=== PATIENT | male | born 1965 ===

== ENCOUNTER 2017-11-27 18:06 | Observation (INO) | payer BC ==
[2017-11-27 18:11] VITALS: BMI 25.0
[2017-11-27 18:25] LABS: BASO # 0.1 K/uL (0.0-0.2); BASO % 0.6 % (0.0-2.0); EOS % 0.3 % (0.0-4.0); LYMPH % 7.6 % (20.0-40.0); MEAN CELL VOLUME 85.1 fL (80.0-94.0); MEAN CORPUSCULAR HEMOGLOBIN 28.8 pg (27.0-31.0); MEAN CORPUSCULAR HGB CONC 33.8 g/dL (33.0-37.0); MEAN PLATELET VOLUME 8.6 fL (7.2-11.7); MONO # 1.2 K/uL (0.0-0.8); MONO % 9.6 % (0.0-10.0); NEUT # 10.5 K/uL (1.8-7.0); NEUT % 81.9 % (50.0-75.0); NRBC % 0.1 % (0.0-2.0); PLATELET COUNT 317 K/uL (130-400); RBC 4.86 Mil/uL (4.40-5.90); RED CELL DISTRIBUTION WIDTH 13.6 % (11.5-14.5); WHITE BLOOD COUNT 12.8 K/uL (4.8-10.8)
--- NOTE | 2017-11-27 18:31 | C.PDOC ---
History Of Present Illness [id number] male with Hx of HTN and hyperlipidemia presents to ED for complaints of mid sternal chest pain that radiates to sternal notch that began during the night last night. Patient reports he felt SOB and it hurt to take a deep breath. Patient states he took Motrin for relief and went back to sleep but pain was still present this morning and then worsened during the day. He called 911 this evening. Patient was administered 3 additional Aspirins on route with no relief. Patient also states he has "Hx of reflux but it does not feel like this." Time Seen by Provider: 11/27/17 18:12 Chief Complaint (Nursing): Chest Pain History Per: Patient History/Exam Limitations: no limitations Onset/Duration Of Symptoms: Hrs Current Symptoms Are (Timing): Still Present Modifying Factors: None Exacerbating Factors: None Alleviating Factors: None Nitro Therapy Administered: 3 Recent travel outside of the [place]: No Past Medical History Reviewed: Historical Data, Nursing Documentation, Vital Signs Vital Signs: Last Vital Signs Temp 98.7 F 11/27/17 18:10 Pulse 80 11/27/17 19:37 Resp 24 11/27/17 19:37 BP 121/69 11/27/17 19:37 Pulse Ox 98 11/27/17 19:37 - Medical History PMH: HTN, Hypercholesterolemia Surgical History: No Surg Hx Family History: States: CAD - Social History Hx Tobacco Use: No Hx Alcohol Use: No Hx Substance Use: No - Immunization History Hx Tetanus Toxoid Vaccination: No Hx Influenza Vaccination: Yes Hx Pneumococcal Vaccination: No Review Of Systems Constitutional: Negative for: Fever, Chills Cardiovascular: Positive for: Chest Pain (mid sternal ) Respiratory: Positive for: Shortness of Breath. Negative for: Cough Gastrointestinal: Negative for: Nausea, Vomiting, Diarrhea Skin: Negative for: Rash Neurological: Negative for: Weakness, Numbness Physical Exam - Physical Exam Appears: Well, Non-toxic, No Acute Distress Skin: Normal Color, Warm, Dry Head: Atraumatic, Normacephalic Eye(s): bilateral: Normal Inspection, PERRL, EOMI Oral Mucosa: Moist Neck: Supple Chest: Symmetrical, No Tenderness Cardiovascular: Rhythm Regular, No Murmur Respiratory: Normal Breath Sounds, No Decreased Breath Sounds, No Rales, No Rhonchi, No Wheezing Gastrointestinal/Abdominal: Soft, No Tenderness, No Distention Extremity: Normal ROM, No Tenderness, No Pedal Edema, No Deformity Extremity: Bilateral: Normal Color And Temperature, Normal ROM Neurological/Psych: Oriented x3, Normal Speech, Normal Cognition, Other (No focal deficits ) Gait: Steady ED Course And Treatment - Laboratory Results Result Diagrams: 11/27/17 18:22 11/27/17 18:22 Lab Interpretation: No Acute Changes ECG: Interpreted By Me ECG Rhythm: Sinus Rhythm (with diffuse ST elevations) O2 Sat by Pulse Oximetry: 97 (RA) Pulse Ox Interpretation: Normal - Radiology CXR: Interpreted by Me CXR Interpretation: Yes: No Acute Disease Reevaluation Time: 19:56 Reassessment Condition: Improved (Patient comfortable and pain free.) - Physician Consult Information Time Consulting Physician Contacted: 19:56 Physician Contacted: Garth Walker Outcome Of Conversation: Patient to remain on Tele for observation. Medical Decision Making Medical Decision Making: Ordered EKG, blood work, D-Dimer and CXR. Differential diagnosis includes CAD, pericarditis, GERD, PE Disposition - Disposition Disposition: HOSPITALIZED Disposition Time: 20:03 Condition: STABLE - POA Present On Arrival: None - Clinical Impression Clinical Impression: Chest pain - Scribe Statement The provider has reviewed the documentation as recorded by the Scribe Gary Macedo All medical record entries made by the Scribe were at my direction and personally dictated by me. I have reviewed the chart and agree that the record accurately reflects my personal performance of the history, physical exam, medical decision making, and the department course for this patient. I have also personally directed, reviewed, and agree with the discharge instructions and disposition.
[2017-11-27 18:38] LABS: ALB/GLOB RATIO 1.1 (1.0-2.1); ALBUMIN 4.1 g/dL (3.5-5.0); ALT/SGPT 25 U/L (21-72); AST/SGOT 20 U/L (17-59); BLOOD UREA NITROGEN 11 mg/dL (9-20); CALCIUM 9.2 mg/dl (8.6-10.4); GFR AFRICAN-AMERICAN > 60; GFR NON-AFRICAN AMERICAN > 60
[2017-11-27 19:11] LABS: BANDS 2 % (0-2); BASOPHIL 1 % (0-2); EOSINOPHIL 1 % (0-4); LYMPHOCYTE 12 % (20-40); MONOCYTE 10 % (0-10); NEUTROPHIL 72 % (50-75); PLATELET ESTIMATE NORMAL (NORMAL); REACTIVE LYMPHOCYTES 2 % (0-0); TOTAL CELLS COUNTED 100
[2017-11-27] MEDS ORDERED: Enoxaparin 40 mg Syringe SC STA (19:59)
[2017-11-27] MEDS ORDERED: Enoxaparin 40 mg Syringe ONE (20:13)
[2017-11-27 22:59] VITALS: RESP 20
--- NOTE | 2017-11-27 23:42 | CP.PCM.HP ---
History of Present Illness - History of Present Illness History of Present Illness: CC: chest pain History Of Present Illness [id number] male with Hx of HTN and hyperlipidemia presents to ED for complaints of mid sternal chest pain that radiates to sternal notch that began during the night last night. Patient reports he felt SOB and it hurt to take a deep breath. Patient states he took Motrin for relief and went back to sleep but pain was still present this morning and then worsened during the day. He called 911 this evening. Patient was administered 3 additional Aspirins on route with no relief. Patient also states he has "Hx of reflux but it does not feel like this." Past Patient History - Past Social History Smoking Status: Never Smoked - CARDIAC Hx Hypercholesterolemia: Yes Hx Hypertension: Yes - PSYCHIATRIC Hx Substance Use: No - SURGICAL HISTORY Hx Surgeries: No Meds Allergies/Adverse Reactions: Allergies Allergy/AdvReac Type Severity Reaction Status Date / Time No Known Allergies Allergy Verified 11/27/17 18:12 Results - Vital Signs Recent Vital Signs: Last Vital Signs Temp 99.2 F 11/27/17 22:58 Pulse 77 11/27/17 22:58 Resp 20 11/27/17 22:58 BP 132/74 11/27/17 22:58 Pulse Ox 99 11/27/17 22:58 - Labs Result Diagrams: 11/27/17 18:22 11/27/17 18:22 Labs: Laboratory Results - last 24 hr 11/27/17 11/27/17 11/27/17 18:22 18:22 18:22 WBC 12.8 H RBC 4.86 Hgb 14.0 Hct 41.4 MCV 85.1 MCH 28.8 MCHC 33.8 RDW 13.6 Plt Count 317 MPV 8.6 Neut % (Auto) 81.9 H Lymph % (Auto) 7.6 L [place] % (Auto) 9.6 Eos % (Auto) 0.3 Baso % (Auto) 0.6 Neut # (Auto) 10.5 H Lymph # (Auto) 1.0 [place] # (Auto) 1.2 H Eos # (Auto) 0.0 Baso # (Auto) 0.1 Neutrophils % (Manual) 72 Band Neutrophils % 2 Lymphocytes % (Manual) 12 L Reactive Lymphs % 2 H Monocytes % (Manual) 10 Eosinophils % (Manual) 1 Basophils % (Manual) 1 Platelet Estimate Normal D-Dimer, Quantitative < 200 Sodium 147 Potassium 3.6 Chloride 104 Carbon Dioxide 27 Anion Gap 19 BUN 11 Creatinine 0.9 Est GFR ( Amer) > 60 Est GFR (Non-Af Amer) > 60 Random Glucose 106 Calcium 9.2 Total Bilirubin 1.2 AST 20 ALT 25 Alkaline Phosphatase 85 Troponin I < 0.0120 Total Protein 7.7 Albumin 4.1 Globulin 3.6 Albumin/Globulin Ratio 1.1 Assessment & Plan (1) Chest pain Assessment and Plan: 52 year old admitted with chest pain increasing with respiration and unlike his previously heart burn'; unresponsive to aspirin; radiating to his lower neck; associated with shortness of breath; due to persistence call an ambulance No history of palpitations syncope palpitations edema He reportedly had a 'normal' stress test in 2017 Past Medical Systemic hypertension Hyperlipidemia Status: Acute
[2017-11-28 01:28] LABS: CK-MB 0.93 ng/mL (0.0-3.38); TROPONIN I 0.06 ng/mL (0.00-0.120)
--- NOTE | 2017-11-28 09:12 | RAD ---
PROCEDURE: CHEST RADIOGRAPH, 1 VIEW HISTORY: chest pain COMPARISON: None available. FINDINGS: LUNGS: Linear atelectasis noted at the left base with remaining lung graham clear. PLEURA: No pneumothorax or pleural fluid seen. CARDIOVASCULAR: Normal. OSSEOUS STRUCTURES: No significant abnormalities. VISUALIZED UPPER ABDOMEN: Normal. OTHER FINDINGS: None. IMPRESSION: Linear atelectasis left base. No definite acute cardiopulmonary disease appreciable.
[2017-11-28] MEDS: Enoxaparin 40 mg Syringe SC SCH (10:18)
--- NOTE | 2017-11-28 18:01 | CP.PCM.CON ---
History of Present Illness - History of Present Illness History of Present Illness: Re: Chest pain Chart reviewed and imaging and labs noted 52 year old admitted with chest pain increasing with respiration and unlike his previously heart burn'; unresponsive to aspirin; radiating to his lower neck; associated with shortness of breath; due to persistence call an ambulance No history of palpitations syncope palpitations edema He reportedly had a 'normal' stress test in 2017 Past Medical Systemic hypertension Hyperlipidemia Past surgery: None Exam: Vitals noted Afebrile No distress Normal venous pressures Normal Carotids Clear lungs ?PMI Normal heart sounds intensity No rub Abdomen: soft no bruits Extremities: no edema DP +=+ EKG: sinus; Diffuse ST elevation VA depression CXR: reviewed: unremarkable Labs: reviewed: unrevealing except a White count of 12.8K Past Patient History - Past Social History Smoking Status: Never Smoked - CARDIAC Hx Hypercholesterolemia: Yes Hx Hypertension: Yes - PSYCHIATRIC Hx Substance Use: No - SURGICAL HISTORY Hx Surgeries: No Meds Allergies/Adverse Reactions: Allergies Allergy/AdvReac Type Severity Reaction Status Date / Time No Known Allergies Allergy Verified 11/27/17 18:12 - Medications Medications: Current Medications Aspirin (Aspirin Chewable) 81 mg PO DAILY [facility] Last Admin: 11/28/17 10:16 Dose: 81 mg Enoxaparin Sodium (Lovenox) 40 mg SC DAILY [facility] Last Admin: 11/28/17 10:18 Dose: 40 mg Metoprolol Tartrate (Lopressor) 25 mg PO BID [facility] Last Admin: 11/28/17 10:16 Dose: 25 mg Rosuvastatin Calcium (Crestor) 20 mg PO [facility] Last Admin: 11/27/17 22:03 Dose: 20 mg Results - Vital Signs Recent Vital Signs: Last Vital Signs Temp 99.4 F 11/28/17 08:25 Pulse 88 11/28/17 08:25 Resp 20 11/28/17 08:25 BP 119/74 11/28/17 10:16 Pulse Ox 96 11/28/17 08:25 - Labs Result Diagrams: 11/27/17 18:22 11/27/17 18:22 Labs: Laboratory Results - last 24 hr 11/27/17 11/27/17 11/27/17 18:22 18:22 18:22 WBC 12.8 H RBC 4.86 Hgb 14.0 Hct 41.4 MCV 85.1 MCH 28.8 MCHC 33.8 RDW 13.6 Plt Count 317 MPV 8.6 Neut % (Auto) 81.9 H Lymph % (Auto) 7.6 L [place] % (Auto) 9.6 Eos % (Auto) 0.3 Baso % (Auto) 0.6 Neut # (Auto) 10.5 H Lymph # (Auto) 1.0 [place] # (Auto) 1.2 H Eos # (Auto) 0.0 Baso # (Auto) 0.1 Neutrophils % (Manual) 72 Band Neutrophils % 2 Lymphocytes % (Manual) 12 L Reactive Lymphs % 2 H Monocytes % (Manual) 10 Eosinophils % (Manual) 1 Basophils % (Manual) 1 Platelet Estimate Normal D-Dimer, Quantitative < 200 Sodium 147 Potassium 3.6 Chloride 104 Carbon Dioxide 27 Anion Gap 19 BUN 11 Creatinine 0.9 Est GFR ( Amer) > 60 Est GFR (Non-Af Amer) > 60 Random Glucose 106 Calcium 9.2 Total Bilirubin 1.2 AST 20 ALT 25 Alkaline Phosphatase 85 Total Creatine Kinase CK-MB (Mass) Troponin I < 0.0120 Total Protein 7.7 Albumin 4.1 Globulin 3.6 Albumin/Globulin Ratio 1.1 11/28/17 01:00 WBC RBC Hgb Hct MCV MCH MCHC RDW Plt Count MPV Neut % (Auto) Lymph % (Auto) [place] % (Auto) Eos % (Auto) Baso % (Auto) Neut # (Auto) Lymph # (Auto) [place] # (Auto) Eos # (Auto) Baso # (Auto) Neutrophils % (Manual) Band Neutrophils % Lymphocytes % (Manual) Reactive Lymphs % Monocytes % (Manual) Eosinophils % (Manual) Basophils % (Manual) Platelet Estimate D-Dimer, Quantitative Sodium Potassium Chloride Carbon Dioxide Anion Gap BUN Creatinine Est GFR ( Amer) Est GFR (Non-Af Amer) Random Glucose Calcium Total Bilirubin AST ALT Alkaline Phosphatase Total Creatine Kinase 104 CK-MB (Mass) 0.93 Troponin I 0.0600 Total Protein Albumin Globulin Albumin/Globulin Ratio Assessment & Plan - Assessment and Plan (Free Text) Assessment: Mr. Best presented with chest pain on a background of some vascular risk factors, diffuse ST changes and normal serum troponins Profile suggestive of acute pericarditis likely viral; there is no evidence of tamponade; doubt underlying coronary disease; however vascular risk factors warrant a stress test assuming a normal echocardiogram and serum troponins do not increment Plan: EKG Previous EKG if available to exclude early reporlarization syndrome Echocardiogram Aspirin - Date & Time Date: 11/28/17 Time: 18:38
--- NOTE | 2017-11-28 23:52 | CP.PCM.PN ---
Subjective - Date & Time of Evaluation Date of Evaluation: 11/28/17 Time of Evaluation: 21:00 - Subjective Subjective: Pt seen and evaluated Objective - Vital Signs/Intake and Output Vital Signs (last 24 hours): Temp Pulse Resp BP Pulse Ox 99.4 F 88 20 153/94 H 96 11/28/17 08:25 11/28/17 08:25 11/28/17 08:25 11/28/17 18:25 11/28/17 08:25 - Medications Medications: Current Medications Aspirin (Aspirin Chewable) 81 mg PO DAILY [facility] Last Admin: 11/28/17 10:16 Dose: 81 mg Enoxaparin Sodium (Lovenox) 40 mg SC DAILY [facility] Last Admin: 11/28/17 10:18 Dose: 40 mg Metoprolol Tartrate (Lopressor) 25 mg PO BID [facility] Last Admin: 11/28/17 18:19 Dose: 25 mg Rosuvastatin Calcium (Crestor) 20 mg PO [facility] Last Admin: 11/28/17 21:39 Dose: 20 mg Zolpidem Tartrate (Ambien) 5 mg PO [facility] Last Admin: 11/28/17 22:28 Dose: 5 mg - Labs Labs: 11/27/17 18:22 11/27/17 18:22 Assessment and Plan (1) Chest pain Status: Acute
[2017-11-29 00:50] VITALS: O2SAT 97
[2017-11-29 01:57] VITALS: TEMP 98.1
[2017-11-29 08:25] VITALS: PULSE 79
[2017-11-29] MEDS: Enoxaparin 40 mg Syringe SC SCH (09:31)
[2017-11-29 09:34] VITALS: BP 122/78
--- NOTE | 2017-11-29 10:40 | CP.PCM.PN ---
Subjective - Date & Time of Evaluation Date of Evaluation: 11/29/17 Time of Evaluation: 10:37 - Subjective Subjective: Denies any chest pain or shortness of breath. Objective - Vital Signs/Intake and Output Vital Signs (last 24 hours): Temp Pulse Resp BP Pulse Ox 98.1 F 79 20 122/78 97 11/29/17 08:22 11/29/17 08:22 11/29/17 08:22 11/29/17 09:31 11/29/17 08:22 Intake and Output: 11/29/17 11/29/17 06:59 18:59 Intake Total 480 Balance 480 - Medications Medications: Current Medications Aspirin (Aspirin Chewable) 81 mg PO DAILY [facility] Last Admin: 11/29/17 09:31 Dose: 81 mg Enoxaparin Sodium (Lovenox) 40 mg SC DAILY [facility] Last Admin: 11/29/17 09:31 Dose: 40 mg Metoprolol Tartrate (Lopressor) 25 mg PO BID [facility] Last Admin: 11/29/17 09:31 Dose: 25 mg Rosuvastatin Calcium (Crestor) 20 mg PO [facility] Last Admin: 11/28/17 21:39 Dose: 20 mg Zolpidem Tartrate (Ambien) 5 mg PO [facility] Last Admin: 11/28/17 22:28 Dose: 5 mg - Labs Labs: 11/27/17 18:22 11/27/17 18:22 - Head Exam Head Exam: NORMOCEPHALIC - Neck Exam Neck Exam: Normal Inspection - Respiratory Exam Respiratory Exam: NORMAL BREATHING PATTERN - Cardiovascular Exam Cardiovascular Exam: REGULAR RHYTHM - Extremities Exam Extremities Exam: Normal Inspection - Neurological Exam Neurological Exam: Oriented x3 Assessment and Plan (1) Chest pain Assessment & Plan: Patient with history of hyperlipidemia and hypertension now with chest pain. Cardiac markers negative so far. Reviewed ECHO. normal LV systolic function with mild MR and Trace A R. Discussed with patient he wants to go home. May D/C home and further work-up can be done as out patient. Status: Acute
--- NOTE | 2017-11-29 12:07 | CARD ---
APPROVED REPORT EXAM: Two-dimensional and M-mode echocardiogram with Doppler and color Doppler. Other Information Quality : GoodRhythm : INDICATION Chest Pain 2D DIMENSIONS IVSd1.0 (0.7-1.1cm)LVDd4.1 (3.9-5.9cm) PWd1.2 (0.7-1.1cm)LVDs2.4 (2.5-4.0cm) FS (%) 42.2 %LVEF (%)73.7 (>50%) M-Mode DIMENSIONS RVDd1.77 (2.1-3.2cm)Left Atrium (MM)4.48 (2.5-4.0cm) IVSd1.04 (0.7-1.1cm)Aortic Root3.23 (2.2-3.7cm) LVDd4.93 (4.0-5.6cm)Aortic Cusp Exc.2.12 (1.5-2.0cm) PWd1.18 (0.7-1.1cm)FS (%) 39 % LVDs3.02 (2.0-3.8cm)LVEF (%)69 (>50%) Aortic Valve AI P 1/2 [id number] Mitral Valve MV E Avwckrxl82.1cm/sMV A Pdzyiulm00.7cm/sE/A ratio0.8 TDI E/Lateral E'0.0E/Medial E'0.0 Tricuspid Valve TR Peak [id number]/sTR Peak Gr.[id number] LEFT VENTRICLE The left ventricle is normal size. There is normal left ventricular wall thickness. The left ventricular function is normal. The left ventricular ejection fraction is within the normal range. There is normal LV segmental wall motion. The left ventricular diastolic function is normal. No left ventricle thrombus noted on this study. There is no ventricular septal defect visualized. There is no left ventricular aneurysm. There is no mass noted in the left ventricle. RIGHT VENTRICLE The right ventricle is normal size. There is normal right ventricular wall thickness. The right ventricular systolic function is normal. ATRIA The left atrium is mildly dilated. The right atrium size is normal. The interatrial septum is intact with no evidence for an atrial septal defect. AORTIC VALVE The aortic valve is normal in structure. There is trace aortic regurgitation. There is no aortic valvular stenosis. There is no aortic valvular vegetation. MITRAL VALVE The mitral valve is normal in structure. There is no mitral valve stenosis. There is no mitral valve regurgitation noted. TRICUSPID VALVE The tricuspid valve is normal in structure. There is no tricuspid valve regurgitation noted. PULMONIC VALVE The pulmonary valve is normal in structure. There is mild pulmonic valvular regurgitation. GREAT VESSELS The aortic root is normal in size. The ascending aorta is normal in size. The pulmonary artery is normal. The IVC is normal in size and collapses >50% with inspiration. PERICARDIAL EFFUSION There is no pericardial effusion. <Conclusion> The left atrium is mildly dilated. There is trace aortic regurgitation. There is mild pulmonic valvular regurgitation. LVEF IS 70%.
--- NOTE | 2017-11-29 12:15 | CARD ---
APPROVED REPORT EKG Measurement Heart [id number] [place] [id number] <Conclusion> Normal sinus rhythm Inferior ST elevation, probably acute inferior infarct Normal ECG
--- NOTE | 2017-11-29 12:36 | CARD ---
APPROVED REPORT EKG Measurement Heart [id number] <Conclusion> Normal sinus rhythm Early repolarization Normal ECG
--- NOTE | 2017-11-29 13:39 | CP.PCM.PN ---
Subjective - Date & Time of Evaluation Date of Evaluation: 11/29/17 Time of Evaluation: 13:35 - Subjective Subjective: PT SEEN [facility] CARDIOLOGY THIS MORNING AND CLEARED FOR D/C HOME. OK TO D/C PER DR. COON. PT IS STABLE AND OFFERS NO COMPLAINTS. HE IS EAGER TO BE D/C HOME TODAY. NO NEW RX TODAY, PT STATES HE HAS ENOUGH MEDICATION AT HOME. TO F/U WITH HIS PMD, DR. HARRIS, WITHIN [address] MÉNDEZ OP FOR FURTHER CARDIAC W/ U. PT VERBALIZES UNDERSTANDING OF ALL D/C INFORMATION. NO FURTHER ORDERS. -FOLLOW UP WITH DR. HARRIS IN THE OFFICE WITHIN 1 WEEK---CALL THE OFFICE TOMORROW TO MAKE AN APPOINTMENT. -FOLLOW UP WITH DR. MÉNDEZ (BABYSITTER) IN THE OFFICE WITHIN 2-3 WEEKS---CALL THE OFFICE TOMORROW TO MAKE AN APPOINTMENT. -CONTINUE YOUR METOPROLOL AND SIMVASTATIN AT HOME USUAL. -NO NEW PRESCRIPTIONS. -IF YOU HAVE ANY QUESTIONS ABOUT YOUR HOSPITALIZATION, FEEL FREE TO CONTACT DR. COON OR DR. MÉNDEZ. Objective - Vital Signs/Intake and Output Vital Signs (last 24 hours): Temp Pulse Resp BP Pulse Ox 98.1 F 79 20 122/78 97 11/29/17 08:22 11/29/17 08:22 11/29/17 08:22 11/29/17 09:31 11/29/17 08:22 Intake and Output: 11/29/17 11/29/17 06:59 18:59 Intake Total 480 Balance 480 - Medications Medications: Current Medications Aspirin (Aspirin Chewable) 81 mg PO DAILY [facility] Last Admin: 11/29/17 09:31 Dose: 81 mg Enoxaparin Sodium (Lovenox) 40 mg SC DAILY [facility] Last Admin: 11/29/17 09:31 Dose: 40 mg Metoprolol Tartrate (Lopressor) 25 mg PO BID [facility] Last Admin: 11/29/17 09:31 Dose: 25 mg Rosuvastatin Calcium (Crestor) 20 mg PO HS [facility] Last Admin: 11/28/17 21:39 Dose: 20 mg Zolpidem Tartrate (Ambien) 5 mg PO HS [facility] Last Admin: 11/28/17 22:28 Dose: 5 mg - Labs Labs: 11/27/17 18:22 11/27/17 18:22
--- NOTE | 2017-11-29 23:00 | CP.PCM.DIS ---
Provider - Provider Date of Admission: 11/27/17 20:03 Attending physician: Garth Walker MD Time Spent in preparation of Discharge (in minutes): 45 Diagnosis - Discharge Diagnosis (1) Chest pain Status: Acute Hospital Course - Lab Results Lab Results: Most Recent Lab Values WBC 12.8 K/uL (4.8-10.8) H 11/27/17 18:22 RBC 4.86 Mil/uL (4.40-5.90) 11/27/17 18: Hgb 14.0 g/dL (12.0-18.0) 11/27/17 18: Hct 41.4 % (35.0-51.0) 11/27/17: MCV 85.1 fL (80.0-94.0) 11/27/17: MCH 28.8 pg (27.0-31.0) 11/27/17: MCHC 33.8 g/dL (33.0-37.0) 11/27/17: RDW 13.6 % (11.5-14.5) 11/27/17: Plt Count 317 K/uL (130-400) 11/27/17 18: MPV 8.6 fL (7.2-11.7) 11/27/17 18: Neut % (Auto) 81.9 % (50.0-75.0) H 11/27/17: Lymph % (Auto) 7.6 % (20.0-40.0) L 11/27/17: [place] % (Auto) 9.6 % (0.0-10.0) 11/27/17: Eos % (Auto) 0.3 % (0.0-4.0) 11/27/17: Baso % (Auto) 0.6 % (0.0-2.0) 11/27/17: Neut # (Auto) 10.5 K/uL (1.8-7.0) H 11/27/17 18: Lymph # (Auto) 1.0 K/uL (1.0-4.3) 11/27/17 18: [place] # (Auto) 1.2 K/uL (0.0-0.8) H 11/27/17 18:22 Eos # (Auto) 0.0 K/uL (0.0-0.7) 11/27/17 18:22 Baso # (Auto) 0.1 K/uL (0.0-0.2) 11/27/17 18:22 Neutrophils % (Manual) 72 % (50-75) 11/27/17 18:22 Band Neutrophils % 2 % (0-2) 11/27/17 18:22 Lymphocytes % (Manual) 12 % (20-40) L 11/27/17 18:22 Reactive Lymphs % 2 % (0-0) H 11/27/17 18:22 Monocytes % (Manual) 10 % (0-10) 11/27/17 18:22 Eosinophils % (Manual) 1 % (0-4) 11/27/17 18:22 Basophils % (Manual) 1 % (0-2) 11/27/17 18:22 Platelet Estimate Normal (NORMAL) 11/27/17 18: D-Dimer, Quantitative < 200 ng/mlDDU (0-243) 11/27/17 18:22 Sodium 147 mmol/L (132-148) 11/27/17 18:22 Potassium 3.6 mmol/L (3.6-5.2) 11/27/17 18: Chloride 104 mmol/L (98-107) 11/27/17 18: Carbon Dioxide 27 mmol/L (22-30) 11/27/17 18:22 Anion Gap 19 (10-20) 11/27/17 18: BUN 11 mg/dL (9-20) 11/27/17 18: Creatinine 0.9 mg/dL (0.8-1.5) 11/27/17 18: Est GFR ( Amer) > 60 11/27/17 18: Est GFR (Non-Af Amer) > 60 11/27/17 18: Random Glucose 106 mg/dL (75-110) 11/27/17 18: Calcium 9.2 mg/dl (8.6-10.4) 11/27/17 18: Total Bilirubin 1.2 mg/dL (0.2-1.3) 11/27/17 18: AST 20 U/L (17-59) 05/12/18 18:22 ALT 25 U/L (21-72) 11/27/17 18:22 Alkaline Phosphatase 85 U/L (38-126) 11/27/17 18:22 Total Creatine Kinase 104 U/L (55-170) 11/28/17 01:00 CK-MB (Mass) 0.93 ng/mL (0.0-3.38) 11/28/17 01:00 Troponin I 0.0600 ng/mL (0.00-0.120) 11/28/17 01:00 Total Protein 7.7 g/dL (6.3-8.3) 11/27/17 18: Albumin 4.1 g/dL (3.5-5.0) 11/27/17 18: Globulin 3.6 gm/dL (2.2-3.9) 11/27/17 18: Albumin/Globulin Ratio 1.1 (1.0-2.1) 11/27/17 18:22 - Hospital Course Hospital Course: PT SEEN [facility] THIS MORNING AND CLEARED FOR D/C HOME. PT IS STABLE AND OFFERS NO COMPLAINTS. HE IS EAGER TO BE D/C HOME TODAY. NO NEW RX TODAY, PT STATES HE HAS ENOUGH MEDICATION AT HOME. TO F/U WITH HIS PMD, DR. HARRIS, WITHIN [address] MÉNDEZ OP FOR FURTHER CARDIAC W/U. PT VERBALIZES UNDERSTANDING OF ALL D/C INFORMATION. NO FURTHER ORDERS. -FOLLOW UP WITH DR. HARRIS IN THE OFFICE WITHIN 1 WEEK---CALL THE OFFICE TOMORROW TO MAKE AN APPOINTMENT. -FOLLOW UP WITH DR. MÉNDEZ (BONDING EQUIPMENT OPERATOR) IN THE OFFICE WITHIN 2-3 WEEKS---CALL THE OFFICE TOMORROW TO MAKE AN APPOINTMENT. -CONTINUE YOUR METOPROLOL AND SIMVASTATIN AT HOME USUAL. -NO NEW PRESCRIPTIONS. -IF YOU HAVE ANY QUESTIONS ABOUT YOUR HOSPITALIZATION, FEEL FREE TO CONTACT DR. WALKER OR DR. MÉNDEZ. Discharge Exam - Head Exam Head Exam: NORMOCEPHALIC Discharge Plan - Discharge Medications Prescriptions: Simvastatin 40 mg PO HS 999 Days tablet - Follow Up Plan Condition: STABLE Disposition: HOME/ ROUTINE Instructions: Heart Healthy Diet, Chest Pain (DC), Simvastatin Additional Instructions: -FOLLOW UP WITH DR. HARRIS IN THE OFFICE WITHIN 1 WEEK---CALL THE OFFICE TOMORROW TO MAKE AN APPOINTMENT. -FOLLOW UP WITH DR. MÉNDEZ (BONDING EQUIPMENT OPERATOR) IN THE OFFICE WITHIN 2-3 WEEKS---CALL THE OFFICE TOMORROW TO MAKE AN APPOINTMENT. -CONTINUE YOUR METOPROLOL AND SIMVASTATIN AT HOME USUAL. -NO NEW PRESCRIPTIONS. -IF YOU HAVE ANY QUESTIONS ABOUT YOUR HOSPITALIZATION, FEEL FREE TO CONTACT DR. WALKER OR DR. MÉNDEZ. Referrals: Blu Harris MD [Medical Doctor] - Gautam Méndez MD [Staff Provider] - Garth Walker MD [Staff Provider] - 12/06/17 1:30 pm (Appointment made for you , spoke with [place]
== END 2017-11-29 14:14 | disposition home or self-care (01) ==
LOC: C.ER 18:06 → C.9E 20:03 → C.6T 20:52 → C.9E 21:24 → C.6T 22:27
PROVIDERS: ADMIT Internal Medicine; ATTEND Internal Medicine
DX: R07.89 Other chest pain (principal); I10 Essential (primary) hypertension; E78.5 Hyperlipidemia, unspecified; E78.00 Pure hypercholesterolemia, unspecified; I25.10 Atherosclerotic heart disease of native coronary artery without angina pectoris; K21.9 Gastro-esophageal reflux disease without esophagitis
CPT/HCPCS: 36415; 71045; 80053; 84484; 85025; 85378; 93005; 93306; 96372; 99285; G0378; J1650